=== PATIENT | female | born 1995 | race Caucasian/White ===

== ENCOUNTER 2023-06-30 12:06 | Outpatient (REF) | payer MEDICAID, SELFPAY ==
[2023-06-30 13:18] LABS: MANUAL DIFF FLAG NO
[2023-06-30 13:27] LABS: Basophils Absolute Auto 0.1 X10*3/uL (0.0-0.2); Eosinophils Absolute Auto 0.4 X10*3/uL (0.0-0.4); Eosinophils Percent Auto 4.3 % (0-4); Hemoglobin 12.7 g/dl (12.0-16.0); Imm Gran Abs Auto 0.08 X10*3/uL (0.00-0.03); Imm Gran Pct Auto 0.9 % (0.0-0.4); Lymphocytes Absolute Auto 2.3 X10*3/uL (1.2-4.9); Lymphocytes Percent Auto 24.7 % (20-40); Mean Corpuscular HGB Conc 31.8 g/dl (31.0-35.0); Mean Corpuscular Hemoglobin 25.4 pg (27.0-33.0); Mean Platelet Volume 10.6 fL (9.4-12.3); Monocytes Absolute Auto 0.5 X10*3/uL (0.1-1.2); Monocytes Percent Auto 5.4 % (2-11); Neutrophils Absolute Auto 5.9 x10*3/uL (2.0-8.3); Neutrophils Percent Auto 63.7 % (45-73); Platelet Count 362 X10*3/uL (160-400); Red Cell Distribution Width 13.8 % (11.0-16.0); White Blood Count 9.2 X10*3/uL (4.8-10.8)
[2023-06-30 14:23] LABS: Erythrocyte Sedimentation Rate 44 MM/HR (0-20)
[2023-06-30 16:11] LABS: Alanine Aminotransferase 25 U/L (0-31); Albumin Level 4.2 g/dL (3.5-5.0); Alkaline Phosphatase 93 U/L (39-117); Anion Gap 11 (12-20); Aspartate Amino Transferase 21 U/L (5-31); Bilirubin Total 0.2 mg/dL (0.0-1.0); Blood Urea Nitrogen 9 mg/dL (9-16); C Reactive Protein 2.21 mg/dL (< or = 0.50); Calcium 9.8 mg/dL (8.4-10.2); Carbon Dioxide 27 mmol/L (22-29); Chloride 105 mmol/L (96-108); Estimated Glomerular Filt Rate > 60; Glucose Random 110 mg/dL (60-115); Potassium 3.8 mmol/L (3.3-5.1); Sodium 139 mmol/L (135-145); Total Protein 8.7 g/dL (6.5-8.0)
== END 2023-06-30 12:07 | disposition home or self-care (01) ==
LOC: HO.HHCL 12:06
PROVIDERS: Visit Provider Nurse Practitioner Family
DX: R10.10 Upper abdominal pain, unspecified (principal)
CPT/HCPCS: 36415; 80053; 85025; 85652; 86140

== ENCOUNTER 2023-08-02 11:58 | Outpatient (REF) | payer MEDICAID, SELFPAY ==
[2023-08-02 14:17] LABS: C Reactive Protein 2.23 mg/dL (< or = 0.50)
[2023-08-02 14:28] LABS: Erythrocyte Sedimentation Rate 40 MM/HR (0-20)
== END 2023-08-02 11:59 | disposition home or self-care (01) ==
LOC: HO.HHCL 11:58
PROVIDERS: Visit Provider Nurse Practitioner Family
DX: R79.82 Elevated C-reactive protein (CRP) (principal)
CPT/HCPCS: 36415; 85652; 86140

== ENCOUNTER 2024-03-30 16:11 | Outpatient (REF) | payer MEDICAID, SELFPAY ==
[2024-03-30 18:16] LABS: C Reactive Protein 2.75 mg/dL (< or = 0.50); Magnesium 1.9 mg/dL (1.6-2.6)
[2024-03-30 18:35] LABS: Erythrocyte Sedimentation Rate 53 MM/HR (0-20)
[2024-03-30 18:50] LABS: Folate 7.9 ng/mL (> or = 4.0); Vitamin B12 392 pg/mL (200-900)
== END 2024-03-30 16:12 | disposition home or self-care (01) ==
LOC: HO.HHCL 16:11
PROVIDERS: Visit Provider Nurse Practitioner
DX: M25.50 Pain in unspecified joint (principal)
CPT/HCPCS: 36415; 82607; 82746; 83735; 85652; 86140

== ENCOUNTER 2024-12-13 08:32 | Outpatient (REF) | payer OTHER, SELFPAY ==
--- OUTSIDE RECORDS SUMMARY | 2024-12-13 08:51 | XMS_ITS | Encounter Summary ---
Author Organization [employer] Address [address] [place] [address] Care Team Providers Care Linux Security Administrator Name Role Phone Nimisha Hastings NP Primary Care Provider [phone] Reason for Visit * Reason Onset Date Comments chart prep 12/11/2024 Encounter Details Date Type Department Care Team ([facility] st Contact Info) Description 12/11/[address] [facility] MEDICINE [address] [place] [address] Melo Lamb MA chart prep Social History Tobacco Use Types Packs/Day Years Used Date Smoking Tobacco: Never Smokeless Tobacco: Never Alcohol Use Standard Drinks/Week Comments Not Currently 1 (1 standard drink = 0.6 oz pur e alcohol) Alcohol Answer Date Recorded Frequency of Alcohol Consumption Not on file 02/09/2024 Average Number of Drinks Not on file 024 Frequency of Binge Drinking Not on file 01/16 Score 0 02/09/2024 Depression Answer Date Recorded Patient Health Questionnaire-9 Score 5 05/03/2024 Patient Health Questionnaire-9 Score 5 05/03/2024 Last PHQ-9: Questionnaire Data Not on file 1 07/04/2023 Housing Stability Answer Date Recorded What is your housing situation today? I have lorenzo farah 12/12/[address] you li ve. Do you have problems with any of the following? None of the above 12/12/2024 Food Insecurity Answer Date Recorded Within the past 12 months, y ou worried that your food would run out before you got money to buy more: Never True 12/12/2024 Within the past 12 months,th e food you bought just didn't last and you didn't have enough money to get more: Never True Transportation Answer Date Recorded In the past 12 months, has l ack of transportation kept you from medical appts, meetings, work or from getting things needed for daily living? Yes, it has kept me from medical appointments or getting medications. 12/12/2024 Utilities Answer Date Recorded In the past 12 months, has t he electric, gas, oil or water company threatened to shut off services in your home? Yes 12/12/2024 Depression Answer Date Recorded Patient Health Questionnaire-2 Score 1 05/03/2024 Internet Access Answer Date Recorded Internet Access Q1 Yes 04/04/2024 Internet Access Q2 Not on file 04/04/2024 Comments No Sex and Gender Information Value Date Recorded Sex Assigned at Female 03/13/2022 4:12 PM EDT Legal Sex Female 4:12 PM EDT Gender Identity Non-Binary 11/13/2022 2:53 PM EDT Sexual Orientation Bisexual 11/13/2022 2: 53 PM EDT documented as of this encounter Miscellaneous Notes * Telephone Encounter - Melo Lamb MA - 12/11/2024 11:33 AM EDT Chart Prep Labs: not done-labs printed out Images: not done Referrals: Vaccines due: Covid, Flu, Tdap, Hep B, Hep A, Td, HPV, and DTAP Screenings: pap smear Overdue care gaps: SDOH and Disability screen documented in this encounter Plan of Treatment Upcoming Encounters Date Type Department Care Team (Late st Contact Info) Description 01/12/2025 11:30 AM EDT Office Visit [facility] MEDICINE [address] [place] [address] Nimisha Hastings NP [address] [place] [address] documented as of this encounter Visit Diagnoses Not on filedocumented in this encounter Additional Health Concerns Assessment Noted Time PHQ-9 Depression Total Score: 5 05/03/20 24 11:10 AM EST documented as of this encounter Care Teams Linux Security Administrator Relationship Specialty Start Date End Date Nimisha Hastings NP [address] [place] [address] PCP - General Family Medicine 10/05/23 documented as of this encounter
[2024-12-13 11:23] LABS: MANUAL DIFF FLAG NO
[2024-12-13 11:37] LABS: Hematocrit 40.9 % (37.0-47.0); Hemoglobin 12.7 g/dl (12.0-16.0); Imm Gran Abs Auto 0.10 X10*3/uL (0.00-0.03); Imm Gran Pct Auto 0.8 % (0.0-0.4); Lymphocytes Absolute Auto 3.4 X10*3/uL (1.2-4.9); Mean Corpuscular HGB Conc 31.1 g/dl (31.0-35.0); Mean Corpuscular Hemoglobin 25.0 pg (27.0-33.0); Mean Corpuscular Volume 80.7 fL (80.0-98.0); NRBC Abs Auto 0.000 X10*3/uL (0.0-0.012); NRBC Pct Auto 0.0 /100WBC (0.0-0.2); Platelet Count 380 X10*3/uL (160-400); Red Blood Count 5.07 X10*6/uL (4.20-5.50); White Blood Count 12.0 X10*3/uL (4.8-10.8)
[2024-12-13 12:21] LABS: HIV Num 1 0.07 S/CO (0.00-0.99); ~HepC Num1 0.19 S/CO (0.00-0.79); ~Hepatitis C Antibody Nonreactive (Nonreactive)
[2024-12-13 12:25] LABS: Alanine Aminotransferase 33 U/L (0-31); Albumin Level 4.5 g/dL (3.5-5.0); Alkaline Phosphatase 86 U/L (39-117); Anion Gap 12 (12-20); Aspartate Amino Transferase 25 U/L (5-31); Blood Urea Nitrogen 10 mg/dL (9-16); Calcium 9.6 mg/dL (8.4-10.2); Carbon Dioxide 27 mmol/L (22-29); Chloride 104 mmol/L (96-108); Estimated Glomerular Filt Rate > 60; Potassium 4.0 mmol/L (3.3-5.1); Sodium 139 mmol/L (135-145); Total Protein 8.5 g/dL (6.5-8.0)
[2024-12-13 12:58] LABS: Hemoglobin A1C 122.0876 umol/L; Total Hemoglobin (HGBA1C) 3371.0672 umol/L
[2024-12-13 13:58] LABS: Free T4 (Free Thyroxine) 1.02 ng/dL (0.71-1.85)
== END 2024-12-13 08:33 | disposition home or self-care (01) ==
LOC: HO.HHCL 08:32
PROVIDERS: PCP Nurse Practitioner Family; Visit Provider Nurse Practitioner Family
DX: Z00.00 Encounter for general adult medical examination without abnormal findings (principal); Z11.59 Encounter for screening for other viral diseases; Z11.4 Encounter for screening for human immunodeficiency virus [HIV]; R42 Dizziness and giddiness; R68.89 Other general symptoms and signs
CPT/HCPCS: 36415; 80053; 82533; 83036; 84439; 84443; 85025; 86803; 87389

== ENCOUNTER 2025-01-16 13:24 | Outpatient (AMB) | payer OTHER, SELFPAY ==
--- OUTSIDE RECORDS SUMMARY | 2025-01-12 11:30 | XMS_ITS | Encounter Summary ---
Author Organization [employer] Address [address] [facility] 7t [place] [address] Care Team Providers Care Library Cataloging Technician Name Role Phone Nimisha Hastings NP Primary Care Provider Reason for Referral * Consultation (Routine) - Closed Specialty Diagnoses / Procedures Referred By Contac t Referred To Contact Physical Therapy Diagnoses Migraine with aura and without status migrainosus, not intractable Nimisha Hastings NP [address] [place] [address] Phone: tel: fax: AT Physical Therapy - [address] [address] Phone: tel: fax: Referral ID Status Reason Start Date Expiration Date V isits Requested Visits Authorized [id number] Closed Specialty Services Required 01/12/2025 01/12/2026 1 1 Encounter Details Date Type Department Care Team (Late st Contact Info) Description 01/12/2025 11:30 AM EDT Office Visit [facility] MEDICINE [address] [place], [place] [phone] Nimisha Hastings NP [address] [place], [place] [phone] Migraine with aura and without status migrainosus, not intractable (Primary Dx); Vertigo; Tachycardia Social History Tobacco Use Types Packs/Day Years Used Date Smoking Tobacco: Never Passive Smoke Exposure: Never Smokeless Tobacco: Never Tobacco Cessation:Counseling Given: Not Answered Alcohol Use Standard Drinks/Week Comments Not Currently [...] PM EDT documented as of this encounter Last Filed Vital Signs Vital Sign Reading Time Taken Comments Blood Pressure 114/88 01/12/2025 11:52 AM EDT Pulse 112 01/12/2025 11:44 AM EDT Temperature 36.6 C (97.9 F) 01/12/2025 11:44 AM EDT Respiratory Rate 18 01/12/2025 11:44 AM EDT Oxygen Saturation 95% 01/12/2025 11:44 AM EDT Inhaled Oxygen Concentration - - Weight 98.1 kg (216 lb 6 oz) 01/12/2025 11:44 AM EDT Height 162.6 cm (5' 4 ) 01/12/2025 11:44 AM EDT Body Mass Index 37.14 01/12/2025 11:44 AM EDT documented in this encounter Progress Notes * Nimisha Hastings, DIRECTOR DIETETICS DEPARTMENT - 01/12/2025 11:30 AM EDT Subjective Paris Lux is a 29 y.o. adult who presents to the office for follow up visit - chronic conditions. Interim history: Pt has had to work less, keeping headache journal, Labs from previous visit reviewed with pt Current concerns: Was sitting still and noticed things spinning. Things were getting blurry, and then resulted from headache. Episode lasted 45 minutes was gettign daily headaches but these have reduced significantly.Unable to work Will go to work. Enjoys work does not cause stress. No lightheadedness, now, no palpitations Does not benefit from amitryptiline Reports excessive fatigue Drinks plenty of water, Problem List[1] Review of Systems Constitutional: Negative for activity change and appetite change. Respiratory: Negative for apnea and chest tightness. Objective Visit Vitals BP 114/88 (BP Location: Right arm, Patient Position: Sitting, BP Cuff Size: Large adult) Pulse (!) 112 Temp 97.9 ??F (36.6 ??C) (Oral) Resp 18 Ht 5' 4 (1.626 m) Wt 216 lb 6 oz (98.1 kg) LMP 12/28/2024 (Approximate) SpO2 95% BMI 37.14 kg/m?? OB Status Having periods Smoking Status Never BSA 2.1 m?? Physical Exam Constitutional: Appearance: Claudy is obese. HENT: Head: Atraumatic. Eyes: Conjunctiva/sclera: Conjunctivae normal. Cardiovascular: Rate and Rhythm: Normal rate and regular rhythm. Pulmonary: Effort: Pulmonary effort is normal. Breath sounds: Normal breath sounds. Musculoskeletal: Cervical back: Neck supple. Neurological: Mental Status: Claudy is alert. Assessment/Plan Problem List Items Addressed This Visit Tachycardia Current Assessment & Plan Pt with upcoming visit to cardiology. Possible POTS . Pt reports adequate hydration and salt intake Vertigo Current Assessment & Plan Possibly atypical migraine variant, some improvement with amitryptiline Referral placed to physical therapy, Migraine with aura - Primary Current Assessment & Plan Pt has been keeping headache journal and improvement in symptoms since starting amitryptiling, vertigo symptoms may be atypical aura, Increase to 25 mg, continue with journal. 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 Pharyngitis Recurrent acute non-suppurative otitis media Tachycardia Mild intermittent asthma Generalized abdominal pain Psoriasis (a type of skin inflammation) Tinea corporis Psoriasis Hirsutism Healthcare maintenance Diarrhea Psoriasis of vulva Exercise counseling Dietary counseling Acute low back pain with bilateral sciatica Seasonal allergic rhinitis due to pollen Episodic lightheadedness Temperature intolerance Vertigo Migraine with aura [2] Current Outpatient Medications Medication Sig Dispense Refill albuterol 108 (90 Base) MCG/ACT inhaler INHALE 2 PUFFS BY MOUTH EVERY 6 HOURS NEEDED FOR WHEEZING 36 g 2 amitriptyline (Elavil) 25 MG tablet Take 1 tablet (25 mg) by mouth at bedtime. 30 tablet 2 betamethasone, augmented, (Diprolene) 0.05 % ointment APPLY TOPICALLY TWICE A DAY 30 g 2 loratadine (Claritin) 10 MG tablet Take 1 tablet (10 mg) by mouth Once per day. 30 tablet 2 SUMAtriptan (Imitrex) 100 MG tablet TAKE 1 TABLET BY MOUTH 1 TIME NEEDED FOR MIGRAINE FOR UP TO 1 DOSE 9 tablet 0 triamcinolone (Kenalog) 0.1 % cream Apply topically if needed in the morning and at bedtime for rash (psoriasis). 30 g 2 No current facility-administered medications for this visit. documented in this encounter Miscellaneous Notes * Assessment & Plan Note - Nimisha Hastings NP - 01/12/2025 12:20 PM EDTAssociated Problem(s): Migraine with aura Pt has been keeping headache journal and improvement in symptoms since starting amitryptiling, vertigo symptoms may be atypical aura, Increase to 25 mg, continue with journal. * Assessment & Plan Note - Nimisha Hastings NP - 01/12/2025 12:18 PM EDTAssociated Problem(s): Vertigo Possibly atypical migraine variant, some improvement with amitryptiline Referral placed to physical therapy, * Assessment & Plan Note - Nimisha Hastings NP - 01/12/2025 12:16 PM EDTAssociated Problem(s): Tachycardia Pt with upcoming visit to cardiology. Possible POTS . Pt reports adequate hydration and salt intake documented in this encounter Plan of Treatment Scheduled Referrals Name Type Priority Associated Diagnoses Orde r Schedule Referral to Physical Therapy Outpatient Referral Routine Migraine with aura and without status migrainosus, not intractable Expected: 01/12/2025 (Approximate), Expires: 01/12/2026 documented as of this encounter Visit Diagnoses Diagnosis Migraine with aura and without status migrainosus, not intractable- Primary Vertigo Dizziness and giddiness Tachycardia Unspecified tachycardia documented in this encounter Additional Health Concerns Assessment Noted Time PHQ-9 Depression Total Score: 5 05/03/20 24 11:10 AM EST documented as of this encounter Care Teams Library Cataloging Technician Relationship Specialty Start Date End Date Nimisha Hastings NP [address] [place] [address] PCP - General Family Medicine 10/05/23 documented as of this encounter
--- NOTE | 2025-01-16 13:28 | A.OFFVIS_ITS ---
Vital Signs 01/16/25 13:31 01/16/25 13:55 01/16/25 13:56 Height 5 ft 4 in Weight 207 lb 3.752 oz BMI 35.6 BP 118/83 121/84 124/92 H Blood Pressure Location Lt brachial Lt brachial Lt brachial Position Supine Sitting Standing Pulse 109 H 104 H 111 H Intake Visit Reasons: UTILIZATION REVIEW COORDINATOR/E. Graef/Tachycardia, lightheadedness Intake Note: New Patient Tachycardia and lightheadness effected by hot and cold has felt almost syncopy Plastic Roller Required: No Allergies amoxicillin (From Augmentin) Allergy (Severe, Verified 01/16/25 13:42) Anaphylaxis clavulanic acid (From Augmentin) Allergy (Severe, Verified 01/16/25 13:42) Anaphylaxis Medication List - Last Reconciled 01/16/25 by Power Reyes MD albuterol-budesonide 90-80 mcg/actuation 2 inhalations inhalation DAILY PRN amitriptyline 10 mg PO BEDTIME loratadine (Allergy Relief (loratadine)) 10 mg PO DAILY sumatriptan succinate take 1 tab at onset of headache; if no relief, may repeat 1 tab after at least 2 hrs; max = 2 tabs/24 hrs PO HPI Comments Details: Claudy was referred here for symptoms of persistent rapid heart rate, tachycardia with palpitations and lightheadedness. They are 29-year-old patient with prior history of allergies as well as asthma and migraine headaches. Over the last month symptoms of migraine have become more intense and are associated with now rapid heart rate. They can feel palpitations with a heart is racing in his almost constantly. Also notices when they get up from sitting positions they would get lightheaded sometimes. Drink about 48 oz of water. Try to avoid salt intake. Denies any use of stimulants such as significant alcohol or hmgq-fxs-hlenmwa stimulant use. Has been cutting down caffeine intake. Denies any medications for ADHD. Says that feels anxious but does not want to take medications. Denies any family history. No recent changes in his health otherwise. No recent hormonal changes. Says her thyroid function was checked and this was within normal limits [facility] Surgical History Breast removal, prophylactic Family History Father No problems noted. Mother No problems noted. Review of Systems Const Denies chills, Denies daytime sleepiness, Denies fatigue, Denies fever(s), Denies frequent falls, Denies poor appetite, Denies snoring, Denies stops breathing during sleep, Denies weakness, Denies weight gain and Denies weight loss Eyes Denies loss of vision ENT Reports dizziness and Reports hearing loss Card Reports chest pain, Reports claudication, Denies leg edema, Reports lightheadedness, Reports palpitations, Reports dyspnea, Reports dyspnea on exertion and Reports orthopnea Resp Denies cough, Denies excessive phlegm production, Reports dyspnea, Reports dyspnea on exertion, Denies snoring and Denies wheezing GI Denies abdominal pain, Denies hematochezia, Denies change in bowel habits, Denies nausea and Denies vomiting Denies urinary frequency and Denies dysuria Musc Reports arthralgias, Denies muscle weakness and Denies numbness Skin/Breast Denies nail changes and Denies rash Neuro Denies Abnormal speech present, Reports dizziness, Denies frequent falls, Denies loss of vision, Denies memory loss, Denies numbness and Denies weakness Psych Reports depression and Denies memory loss Endo Denies fatigue and Reports palpitations Keith/Lymph Reports easy bruising and Reports other (anemia) Aller/Immun Denies wheezing Physical Exam Vital Signs: Last Vital Signs Pulse 111 H 01/16/25 13:56 BP 124/92 H 01/16/25 13:56 BMI result Body Mass Index 35.6 Const General: cooperative, comfortable, no acute distress, alert, awake and anxious Nutritional Appearance: obese Orientation/consciousness: patient oriented x3 Limitations: no limitations HEENT Head: Yes normocephalic and Yes atraumatic Neck Neck: Yes trachea midline, Yes supple and Yes no JVD Resp Effort & Inspection: normal respiratory effort Auscultation: clear to auscultation bilaterally Cardio Jugular venous distension: no JVD Rate: tachycardic Rhythm: regular rhythm Heart sounds: S1 normal heart sound present, S2 normal heart sound present, no click, no gallops, no murmurs and no rubs GI Auscultation: normal bowel sounds Skin General skin exam: no rashes or lesions noted Neuro General: patient oriented x3 and no focal motor deficits Speech: No Abnormal speech present Extrem General: Yes no clubbing, cyanosis or edema Office Procedures EKG Details: EKGs shows sinus tachycardia otherwise normal EKGs 25062-[id number], Complete Assessment & Plan Assessment & Plan (1) Tachycardia: Code(s): R00.0 - Tachycardia, unspecified Category: Medical Plan: Patient with persistent tachycardia, sinus tachycardia on today's exam without any clear orthostatic response or orthostatic low blood pressure issues. 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 Need to evaluate for any hormonal imbalance. Will request plasma metanephrine levels. If negative would consider pursuing therapy with nonselective beta-narendra therapy with propranolol which should help with both tachycardia as well as their migraine headaches. Discussed about possible treatment for anxiety/stress which might also help with her tachycardia situation. Advise echocardiogram to evaluate for cardiac structure and function. Also suggest a head-up tilt-table test to assess for dysautonomia syndrome. Advised to maintain adequate hydration up to at least 64 oz a day and also increase salt intake. Will follow up in the clinic in 3 months time, sooner PRN. Orders: Orders ECG Tilt Table Test Today R42 - Dizziness and giddiness ECG 3 day holter monitor Today R00.0 - Tachycardia, unspecified Metanephrines, Plasma Today R00.0 - Tachycardia, unspecified CA echo transthoracic complete Today R00.0 - Tachycardia, unspecified Coding Level of Care Code New Pt Level 4 (64026) Complex EM visit Add On G2211 Diagnoses Tachycardia R00.0 CPT Codes EKG - CPT: 98699-[id number], Complete ([id number])
[2025-01-16 13:31] VITALS: BP 118/83; PULSE 109; BMI 35.6
[2025-01-16 13:55] VITALS: BP 121/84; PULSE 104
[2025-01-16 13:56] VITALS: BP 124/92; PULSE 111
--- OUTSIDE RECORDS SUMMARY | 2025-01-16 14:41 | XMS_ITS | Encounter Summary ---
Author Organization [employer] Address [address] [place] [address] Care Team Providers Care Animal Pathology Teacher Name Role Phone Nimisha Hastings NP Primary Care Provider [phone] Reason for Visit * Reason Onset Date Comments Med Refill 01/12/2025 Pt requesting me d Elavil to be sent to [facility] on [address] Encounter Details Date Type Department Care Team ([facility] st Contact Info) Description 01/12/2025 Refill [facility] MEDICINE [address] [place], [place] [phone] Nimisha Hastings NP [address] [place] [address] Social History Tobacco Use Types Packs/Day Years Used Date Smoking Tobacco: Never Passive Smoke Exposure: Never Smokeless Tobacco: Never Alcohol Use Standard [...] encounter Miscellaneous Notes * Telephone Encounter - Gudelia Camarillo - 01/12/2025 12:22 PM EDT Pt requesting med Elavil to be sent to [facility] on [facility] [address] documented in this encounter Plan of Treatment Not on file documented as of this encounter Visit Diagnoses Not on filedocumented in this encounter Additional Health Concerns Assessment Noted Time PHQ-9 Depression Total Score: 5 05/03/20 24 11:10 AM EST documented as of this encounter Care Teams Animal Pathology Teacher Relationship Specialty Start Date End Date Nimisha Hastings NP [address] [place] [id number] PCP - General Family Medicine 10/05/23 documented as of this encounter
--- OUTSIDE RECORDS SUMMARY | 2025-01-16 14:41 | XMS_ITS | Encounter Summary ---
Author Organization [employer] Address [address] [place] [address] Care Team Providers Care Hand Button Splitter Name Role Phone Nimisha Hastings NP Primary Care Provider [phone] Reason for Visit * Reason Onset Date Comments CHARTPREP 01/11/2025 Encounter Details Date Type Department Care Team (Late st Contact Info) Description 01/11/2025 Telephone [facility] MEDICINE [address] [place] [address] Ty Hernandez MA CHARTPREP Social History Tobacco Use Types Packs/Day Years [...] encounter Miscellaneous Notes * Telephone Encounter - Ty Hernandez MA - 01/11/2025 3:12 PM EDT Chart Prep Labs: done Images: not done Referrals: No appt scheduled Vaccines due: Covid, Flu, PCV20, Tdap, Hep B, Hep A, and HPV Screenings: pap smear Overdue care gaps: Not applicable documented in this encounter Plan of Treatment Not on file documented as of this encounter Visit Diagnoses Not on filedocumented in this encounter Additional Health Concerns Assessment Noted Time PHQ-9 Depression Total Score: 5 05/03/20 24 11:10 AM EST documented as of this encounter Care Teams Hand Button Splitter Relationship Specialty Start Date End Date Nimisha Hastings NP [address] [place] [address] PCP - General Family Medicine 10/05/23 documented as of this encounter
--- OUTSIDE RECORDS SUMMARY | 2025-01-16 14:41 | XMS_ITS | Clinical Summary ---
Author Organization [employer] Address [address] [facility] [address] [place] [address] Care Team Providers Care Account Receivable Associate Name Role Phone Nimisha Hastings NP Primary Care Provider [phone] Allergies Active Allergy Reactions Criticality Noted Date Comments Amoxicillin 01/23/2020 Amoxicillin-Pot Clavulanate Anaphylaxis High 014 Clavulanic Acid 01/23/2020 Kiwi Extract Shortness of breath High 12/05/2020 Medications triamcinolone (Kenalog) 0.1 % creamIndicatio ns:Psoriasis (a type of skin inflammation) Apply topically if needed in the morning and at bedtime for rash (psoriasis). 30 g 2 10/18/19 24 Active betamethasone, augmented, (Diprolene) 0.05 % ointmentIndica tions:Psoriasi s of vulva APPLY TOPICALLY TWICE A DAY 30 g 2 05/16/20 24 Active loratadine (Claritin) 10 MG tabletIndicati ons:Seasonal allergic rhinitis due to pollen Take 1 tablet (10 mg) by mouth Once per day. 30 tablet 2 12/13/19 25 025 Active albuterol 108 (90 Base) MCG/ACT inhaler INHALE 2 PUFFS BY MOUTH EVERY 6 HOURS NEEDED FOR WHEEZING 36 g 2 01/04/20 25 Active SUMAtriptan (Imitrex) 100 MG tablet TAKE 1 TABLET BY MOUTH 1 TIME NEEDED FOR MIGRAINE FOR UP TO 1 DOSE 9 tablet 01/04/20 25 Active amitriptyline (Elavil) 25 MG tablet Take 1 tablet (25 mg) by mouth at bedtime. 30 tablet 01/13/20 25 025 Active albuterol 108 (90 Base) MCG/ACT inhaler Inhale 2 puffs every 6 (six) hours if needed for wheezing. 18 g 11 06/30/19 24 025 Discontinued(Re order (will not trigger notification to Pharmacy)) SUMAtriptan (Imitrex) 100 MG tablet Take 1 tablet (100 mg) by mouth 1 (one) time if needed for migraine for up to 1 dose. 9 tablet 12/13/19 25 025 Discontinued(Re order (will not trigger notification to Pharmacy)) amitriptyline (Elavil) 10 MG tablet Take 1 tablet (10 mg) by mouth at bedtime. 30 tablet 12/13/19 25 025 Discontinued( erapy completed) amitriptyline (Elavil) 25 MG tablet Take 1 tablet (25 mg) by mouth at bedtime. 30 tablet 2 01/13/20 25 025 Discontinued amitriptyline (Elavil) 25 MG tablet Take 1 tablet (25 mg) by mouth at bedtime. 30 tablet 2 01/13/20 25 025 Discontinued( erapy completed) Active Problems Problem Noted Date Diagnosed Date Seasonal allergic rhinitis due to pollen Assessment & Plan (12/12/2024 3:56 PM EDT): Continue supportive measures Episodic lightheadedness 12/12/2024 Assessment & Plan (12/12/2024 3:59 PM EDT): Sometimes positional lightheadedness.referral to cardiology Temperature intolerance 12/12/2024 Assessment & Plan (12/12/2024 4:00 PM EDT): Suspect raynauds, endocrine labs pending. Vertigo 12/12/2024 Assessment & Plan (01/12/2025 12:18 PM EDT): Possibly atypical migraine variant, some improvement with amitryptiline Referral placed to physical therapy, Migraine with aura 12/12/2024 Assessment & Plan (01/12/2025 12:20 PM EDT): Pt has been keeping headache journal and improvement in symptoms since starting amitryptiling, vertigo symptoms may be atypical aura, Increase to 25 mg, continue with journal. Assessment & Plan (12/12/2024 4:01 PM EDT): Pt declined ketorolac today Will trial amitryptiline as migraines as increasing in frequency Follow up in 4 weeks Acute low back pain with bilateral sciatica 04/17 Assessment & Plan (05/13/2024 12:25 PM EST): Isolated episode of severe sciatica, X-ray ordered as pt endorses chronic pain in area Healthcare maintenance 05/03/2024 Assessment & Plan (05/13/2024 12:24 PM EST): Pt due for pap will schedule Labs ordered Anticipatory guidance reviewed Diarrhea 05/03/2024 Assessment & Plan (05/13/2024 12:22 PM EST): Possible IBS, no blood or abdominal pain, no improvement with avoidance of trigger Referral to gi Psoriasis of vulva 05/03/2024 Assessment & Plan (05/13/2024 12:23 PM EST): Referral to derm Exercise counseling 05/03/2024 Assessment & Plan (05/13/2024 12:23 PM EST): Encouraged daily movement, working up to 30 minutes daily Dietary counseling 05/03/2024 Assessment & Plan (12/12/2024 3:56 PM EDT): Dietary Recommendations: Fruits, vegetables, whole grains, protein foods, and fat-free or low-fat dairy products are healthy choices. Eat different types of protein foods in your diet. This can include seafood, lean meats, poultry, beans, peas, lentils, nuts, seeds, soy products, and eggs. Limit foods and beverages higher in added sugars, saturated fat, and sodium. 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, referred to [facility] for medical options Psoriasis 01/30/2024 Psoriasis (a type of skin inflammation) 10/04/19 24 Assessment & Plan (05/13/2024 12:25 PM EST): Stable but would benefit from dermatology Assessment & Plan (03/04/2024 3:23 PM EDT): Renew current medications (topical steroids), referral to derm Assessment & Plan (10/18/2023 5:58 PM EDT): Treating with presumed dx of psoriasis, Referral to derm, pt will update for reoccurring or worsening symptoms Assessment & Plan (10/04/2023 6:28 PM EDT): Suspect psoriatic type eruption though may have a tinea or yeast component Will treat presumptively with combination cream Referral to derm for ongoing management of scalp and likely psoriasis Follow up in 2 weeks for current rash Tinea corporis 10/04/2023 Generalized abdominal pain 10/03/2023 Acute maxillary sinusitis 09/30/2023 Asthma 09/30/2023 Depression 09/30/2023 Fluid level behind tympanic membrane of right ea r 09/30/2023 Recurrent acute non-suppurative otitis media Tachycardia 09/30/2023 Assessment & Plan (01/12/2025 12:16 PM EDT): Pt with upcoming visit to cardiology. Possible POTS . Pt reports adequate hydration and salt intake Assessment & Plan (12/12/2024 3:56 PM EDT): Rapid heart rate, possible POTS referral to cardiology CRP elevated 08/02/2023 Assessment & Plan (08/02/2023 11:51 AM EDT): Trend, no acute symptoms, but pt does endorse some msk aches and pains, plan to monitor them Fatty liver 08/02/2023 Assessment & Plan (08/02/2023 11:48 AM EDT): Incidental finding, reassuring lfts, monitor Gastroesophageal reflux dise ase with esophagitis without hemorrhage 08/02/2023 Assessment & Plan (08/02/2023 11:50 AM EDT): Reviewed option of referral to GI vs ongoing medication therapy . Pt opts for med management , plan to continue 40 mg x 1 month, then reduce to 20 mg x1 month then stop medicine, Follow up in 2 months, Pain of upper abdomen 06/30/2023 Assessment & Plan (06/30/2023 6:18 PM EST): Multiple differentials: Pt endorses sensitivity to lactose, will avoid for 2-5 days, pt endorses some GERD symptoms, will trial famotidine , indication and side effects reviewed, due to tenderness and episode of severe upper abdominal pain per hx, ultrasound ordered r/out gallbladder pathology, aware of s/s requiring urgent evaluation Referral to GI Other hemorrhoids 06/30/2023 Assessment & Plan (06/30/2023 6:22 PM EST): Outside notes reviewed, hx consistent with hemorrhoids, reassuring painless scant amount on toilet paper, no pain with defecation, supportive measures including sitz baths reviewed , hydration and increasing fiber, referral to GI, pt aware of medication option of hydrocotisone suppositories declines today, Referral to GI, follow up in 1 month sooner prn Mild intermittent asthma without complication Assessment & Plan (06/30/2023 6:19 PM EST): Stable mild intermittent, inhaler sent Gender dysphoria 07/14/2020 Mild intermittent asthma 07/14/2020 Gender dysphoria in adult 12/23/2016 Overview (09/30/2023): Added automatically from request for surgery [id number] Added automatically from request for surgery [id number] Pharyngitis 04/05/2014 Resolved Problems Problem Noted Date Diagnosed Date Resolved Date Migraine without aura and wi thout status migrainosus, not intractable 05/26/2024 05/26/2024 Encounters Date Type Department Care Team Description 01/12/2025 11:30 AM EDT Office Visit [facility] [place] [address] Nimisha Hastings NP Migraine with aura and without status migrainosus, not intractable (Primary Dx); Vertigo; Tachycardia 01/12/2025 Refill [facility] [place] [address] Nimisha Hastings NP Migraine with aura and without status migrainosus, not intractable (Primary Dx) 01/12/2025 Refill [facility] [place] [address] Nimisha Hastings NP 01/12/2025 Travel 01/11/2025 Telephone [facility] [place] [address] Ty Hernandez MA CHARTPREP 01/02/2025 Refill [facility] [place] [address] Nimisha Hastings NP 12/21/[address] [facility] [place] [address] Kelsea Auguste RN 12/18/2024 Results Follow-Up [facility] [place] [address] Rae Gutierrez RN Cortisol Random 12/18/2024 Telephone [facility] [place] [address] Nimisha Hastings NP Nurse Triage 12/12/2024 3:30 PM EDT Office Visit [facility] [place] [address] Nimisha Hastings NP Tachycardia (Primary Dx); Dietary counseling; Exercise counseling; Seasonal allergic rhinitis due to pollen; Episodic lightheadedness; Temperature intolerance; Vertigo; Intractable migraine with aura with status migrainosus 12/12/[address] [facility] [address] [place] [address] Nimisha Hastings NP 12/12/2024 Travel 12/11/2024 Travel 12/11/[address] [facility] [address] [place] [address] Melo Lamb MA chart prep 12/05/[address] [facility] [address] [place] [address] Nimisha Hastings NP from Last 3 Months Social History Tobacco Use Types Packs/Day Years [...] is your housing situation today? I have lorenzokimberly farah 12/12/[address] you [...] Orientation Bisexual 11/13/2022 2: 53 PM EDT Last Filed Vital Signs Vital Sign Reading [...] Mass Index 37.14 01/12/2025 11:44 AM EDT Plan of Treatment Health Maintenance Due Date Last Done Comments HPV Vaccines (1 - 3-dose series) 2008 DTaP/Tdap/Td Vaccines (1 - Tdap) 2012 Hepatitis A Vaccines (1 of 2 - Risk 2-dose series) 2012 Hepatitis B Vaccines (1 of 3 - 19+ 3-dose series) 2012 Pneumococcal Vaccine: Pediatrics (0 to 5 Years) and At-Risk Patients (6 to 49) Years (1 of 2 - PCV) 2012 Pap Smear 2014 Cervical Cancer Screening 08/11/2023 HPV/Cotest 08/11/2023 Dental Oral Exam 10/09/2024 04/10/2024 Dental Prophylaxis 10/09/2024 04/10/2024 COVID-19 Vaccine (4 - 2024-2 6 season) 2025 05/29/2021, 09/12/2020, 08/22/2020 Influenza Vaccine (#1) 2025 Alcohol/Substance Use Screening 02/08/2025 02/09/2024 Family Planning (PISQ) 03/01/2025 03/01/2024 Dental X-Ray: Bitewings 04/11/2025 04/10/2024 Depression Screening 05/03/2025 05/03/2024, 05/03/2024 Disability Screening 12/12/2025 12/12/2024 SDOH Screening 12/12/2025 12/12/2024 Tobacco Screening 01/12/2026 01/12/2025 Dental X-Ray: Full Mouth 04/11/2027 04/10/2024 Zoster Vaccines (1 of 2) 08/11/2043 RSV Patients and Patients Aged 60 years or older (1 - 1-dose 75+ series) 2068 HIV Screening Completed 12/13/2024 Hepatitis C Screening Completed 12/13/2024 HIB Vaccines Aged Out No longer eligi ble based on patient's age to complete this topic IPV Vaccines Aged Out No longer eligi ble based on patient's age to complete this topic Meningococcal B Vaccine Aged Out No l onger eligible based on patient's age to complete this topic Meningococcal Vaccine Aged Out No uyen gwendolyn eligible based on patient's age to complete this topic RSV under 20 months Aged Out No longe r eligible based on patient's age to complete this topic Rotavirus Vaccines Aged Out No longer eligible based on patient's age to complete this topic Procedures Procedure Name Priority Date/Time Associated Diagnosis Comments T4, FREE Routine 12/13/2024 8:42 AM EDT Psoriasis (a type of skin inflammation) CORTISOL RANDOM Routine 12/13/2024 8:42 AM EDT Episodic lightheadedness Temperature intolerance COMPREHENSIVE METABOLIC PANEL Routine 12/13/2024 8:42 AM EDT Healthcare maintenance TSH W/REFLEX TO FT4 Routine 12/13/2024 8 :42 AM EDT Healthcare maintenance HEMOGLOBIN A1C Routine 12/13/2024 8:42 AM EDT Healthcare maintenance CBC WITH AUTO DIFFERENTIAL Routine 12/13/2024 8:42 AM EDT Healthcare maintenance HEPATITIS C AB W/REFL TO HCV RNA, QN, PCR Routine 12/13/2024 8:42 AM EDT Healthcare maintenance HIV 1/2 ANTIGEN/ANTIBODY, FOURTH GENERATION W/RFL Routine 12/13/2024 8:42 AM EDT Healthcare maintenance PROPHYLAXIS - ADULT Routine 04/10/2024 1 :00 PM EST INTRAORAL - COMPLETE SERIES OF RADIOGRAPHIC IMAGES Routine 04/10/2024 1:00 PM EST COMPREHENSIVE ORAL EVALUATION - NEW OR ESTABLISHED PATIENT Routine 04/10/2024 1:00 PM EST from Last 3 Months or Most Recently Relevant to Health Maintenance Results * Cortisol Random (12/13/2024 8:42 AM EDT) Cortisol Random 12.0 ug/dL [facility] Comment:Reference Range*: Be fore 10 am 6.2-19.4 ug/dL After 5 pm 2.3-11.9 ug/dL*Please interpret above results accordingly.This test was performed using the Act[employer] chemiluminescentmethod. Values obtained from different assay methods cannotbe used interchangeably.Patients receiving fludrocortisone, prednisolone orprednisone may show artificially elevated cortisol valuesdue to cross-reactivity. 12/13/2024 8:42 AM EDT 12/13/2024 11:18 AM EDT us Nimisha Hastings NUTRITION MANAGER LAB BLOOD ORDERABLES Final Resul t [facility] [address] [place] [phone] [phone] * (ABNORMAL) TSH W/Reflex to FT4 (12/13/2024 8:42 AM EDT) TSH reflex Free T4 4.03(H) 0.32 - 4.0 uIU/mL [facility] Blood Venous blood specimen / Unknown 12/13/2024 8:42 AM EDT 12/13/2024 11:18 AM EDT us Nimisha Hastings NP LAB BLOOD ORDERABLES Final Resul t [facility] [address] [place] [address] [phone] * (ABNORMAL) CBC auto differential (12/13/2024 8:42 AM EDT) White Blood Count 12.0(H) 4.8 - 10.8 X10*3/uL [facility] Red Blood Count 5.07 4.20 - 5.50 X10*6/uL [facility] Hemoglobin 12.7 12.0 - 16.0 g/dl [facility] Hematocrit 40.9 37.0 - 47.0 % [facility] Mean Corpuscular Volume 80.7 80.0 - 98.0 fL [facility] Mean Corpuscular Hemoglobin 25.0(L) 27.0 - 33.0 pg [facility] Mean Corpuscular HGB Conc 31.1 31.0 - 35.0 g/dl [facility] Red Cell Distribution Width 14.3 11.0 - 16.0 % [facility] Platelet Count 380 160 - 400 X10*3/uL [facility] Mean Platelet Volume 10.7 9.4 - 12.3 fL [facility] Neutrophils Percent Auto 61.5 45 - 73 % [facility] Imm Gran Pct Auto 0.8(H) 0.0 - 0.4 % [facility] Lymphocytes Percent Auto 28.5 20 - 40 % [facility] Monocytes Percent Auto 5.8 2 - 11 % [facility] Eosinophils Percent Auto 2.5 0 - 4 % [facility] Basophils Percent Auto 0.9 0 - 2 % [facility] NRBC Pct Auto 0.0 0.0 - 0.2 /100WBC [facility] Neutrophils Absolute Auto 7.4 2.0 - 8.3 x10*3/uL [facility] Imm Gran Abs Auto 0.10(H) 0.00 - 0.03 X10*3/uL [facility] Lymphocytes Absolute Auto 3.4 1.2 - 4.9 X10*3/uL [facility] Monocytes Absolute Auto 0.7 0.1 - 1.2 X10*3/uL [facility] Eosinophils Absolute Auto 0.3 0.0 - 0.4 X10*3/uL [facility] Basophils Absolute Auto 0.1 0.0 - 0.2 X10*3/uL [facility] NRBC Abs Auto 0.000 0.0 - 0.012 X10*3/uL [facility] Blood Venous blood specimen / Unknown 12/13/2024 8:42 AM EDT 12/13/2024 11:18 AM EDT Nimisha Hastings NP LAB BLOOD ORDERABLES Final Resul t Performing Organization Address [facility] Co de Phone Number [facility] [address] [place] [phone] * Hepatitis C Antibody with Reflex to HCV, RNA, Quantitative, Real-Time PCR (12/13/2024 8:42 AM EDT) Hepatitis C Antibody Nonreactive Nonreactive [facility] Comment:Antibodies to HCV no t detected; does not exclude early acuteHCV infection. Blood Venous blood specimen / Unknown 12/13/2024 8:42 AM EDT 12/13/2024 11:18 AM EDT Nimisha Hastings NP LAB BLOOD ORDERABLES Final Resul t Performing Organization Address [facility] Co de Phone Number [facility] [address] [place] [phone] * HIV-1/2 Antigen and Antibodies, Fourth Generation, with Reflexes (12/13/2024 8:42 AM EDT) HIV AB/AG Nonreactive Nonreactive [facility] Comment:HIV-1 p24 Ag and/or HIV-1/HIV-2 Ab not detected.A test result that is nonreactive does not exclude thepossibility of exposure to or infection with HIV-1 and/orHIV-2. Nonreactive results in this assay for individualswith prior exposure to HIV-1 and/or HIV-2 may be due toantigen and antibody levels that are below the limit ofdetection of this assay.The [employer] HIV Ag/Ab Combo assay result andsupplemental assay results should be interpreted inconjunction with the patient's clinical presentation,history and other laboratory results. If the results areinconsistent with clinical evidence, additional testing issuggested to confirm the result. Blood Venous blood specimen / Unknown 12/13/2024 8:42 AM EDT 12/13/2024 11:18 AM EDT us Nimisha Hastings NP LAB BLOOD ORDERABLES Final Resul t Performing Organization Address [facility] Co de Phone Number [facility] [address] [place] [phone] * T4, Free (12/13/2024 8:42 AM EDT) Free T4 (Free Thyroxine) 1.02 0.71 - 1.85 ng/dL [facility] 12/13/2024 8:42 AM EDT 12/13/2024 11:18 AM EDT Nimisha Hastings NP LAB BLOOD ORDERABLES Final Resul t Performing Organization Address [facility] Co de Phone Number [facility] [address] [place] [phone] * Hemoglobin A1c (12/13/2024 8:42 AM EDT) Hemoglobin A1c 5.5 <6.0 % [facility] Comment:Hemoglobin A1C Refer ence Range Adults: 4.8 - 6.0 % Non diabetic: < 6.0 % Goal: < 7.0 %Additional Action Suggested: > 8.0 %Note: Hemoglobin A1c results are invalid for patients with abnormal amounts of HbF. Blood transfusions may impact the HbA1c concentration in the patient sample. Estimated Average Glucose 111 mg/dL [facility] Comment:eAG = Estimated ave rage glucose which is %A1C expressed asaverage glucose, using the formula of the S5Q-IsnyozeCxxpyxy Glucose study (ADAG), Diabetes Care, Vol.31,#8,Dec. 2007 Blood Venous blood specimen / Unknown 12/13/2024 8:42 AM EDT 12/13/2024 11:18 AM EDT us Nimisha Hastings NUTRITION MANAGER LAB BLOOD ORDERABLES Final Resul t [facility] [address] [place] [phone] * (ABNORMAL) Comprehensive Metabolic Panel (12/13/2024 8:42 AM EDT) Sodium 139 135 - 145 mmol/L [facility] Potassium 4.0 3.3 - 5.1 mmol/L [facility] Chloride 104 96 - 108 mmol/L [facility] Carbon Dioxide 27 22 - 29 mmol/L [facility] Anion Gap 12 12 - 20 [facility] Urea Nitrogen (BUN) 10 9 - 16 mg/dL [facility] Creatinine, Serum 0.79 0.5 - 1.4 mg/dL [facility] Estimated Glomerular Filt Rate >60 [facility] Comment:Chronic Kidney Disea se: Estimated GFR < 60 mL/min/1.38c8Iylheh Kidney Disease: Estimated GFR < 15 mL/min/1.73m2 Glucose 97 60 - 115 mg/dL [facility] Calcium 9.6 8.4 - 10.2 mg/dL [facility] Bilirubin, Total 0.3 0.0 - 1.0 mg/dL [facility] Aspartate Amino Transferase 25 5 - 31 U/L [facility] Alanine Aminotransferase 33(H) 0 - 31 U/L [facility] Total Protein 8.5(H) 6.5 - 8.0 g/dL [facility] Albumin Level 4.5 3.5 - 5.0 g/dL [facility] Alkaline Phosphatase 86 39 - 117 U/L [facility] Blood Venous blood specimen / Unknown 12/13/2024 8:42 AM EDT 12/13/2024 11:18 AM EDT us Nimisha Hastings NP LAB BLOOD ORDERABLES Final Resul t [facility] [address] [place] [phone] [phone] from Last 3 Months Insurance [employer] [place] Y[place] [id number] [facility] STAND ADULT Care Teams Account Receivable Associate Relationship Specialty Start Date End Date Nimisha Hastings NP [address] [place] [phone] PCP - General Family Medicine 10/05/23
--- OUTSIDE RECORDS SUMMARY | 2025-01-16 14:41 | XMS_ITS | Encounter Summary ---
Author Organization [employer] Address [address] [facility] [address] [place] [address] Care Team Providers Care Reading Aide Name Role Phone Nimisha Hastings NP Primary Care Provider [phone] Reason for Visit * Reason Onset Date Comments Med Refill 05/05/2024 Encounter Details Date Type Department Care Team (Late st Contact Info) Description 05/05/2024 Refill [facility] [address] [place], [place] [phone] Nimisha Hastings NP [address] [place] [address] Psoriasis of vulva Social History Tobacco Use Types Packs/Day Years [...] housing situation today? I have lorenzo farah 08/02/[address] you li ve. Do you have problems with any of the following? None of the above 08/02/2023 Food Insecurity Answer Date Recorded Within the past 12 months, y ou worried that your food would run out before you got money to buy more: Never True 08/02/2023 Within the past 12 months,th e food you bought just didn't last and you didn't have enough money to get more: Never True Transportation Answer Date Recorded In the past 12 months, has l ack of transportation kept you from medical appts, meetings, work or from getting things needed for daily living? No 08/02/2023 Utilities Answer Date Recorded In the past 12 months, has t he electric, gas, oil or water company threatened to shut off services in your home? No 08/02/2023 Depression Answer Date Recorded Patient Health Questionnaire-2 [...] PM EDT documented as of this encounter Plan of Treatment Not on file documented as of this encounter Visit Diagnoses Diagnosis Psoriasis of vulva documented in this encounter Additional Health Concerns Assessment Noted Time PHQ-9 Depression Total Score: 5 05/03/20 24 11:10 AM EST documented as of this encounter Care Teams Reading Aide Relationship Specialty Start Date End Date Nimisha Hastings NP [address] [place] [address] PCP - General Family Medicine 10/05/23 documented as of this encounter
--- OUTSIDE RECORDS SUMMARY | 2025-01-16 14:41 | XMS_ITS | Encounter Summary ---
Author Organization [employer] Address [address] [facility] [address] [place] [address] Care Team Providers Care Parachute Rigger Name Role Phone Nimisha Hastings NP Primary Care Provider [phone] Reason for Visit * Reason Onset Date Comments Results 03/31/2024 Encounter Details Date Type Department Care Team ([facility] st Contact Info) Description 03/31/2024 Telephone [facility] MEDICINE [address] [place], [place] [phone] Nimisha Hastings NP [address] [place] [address] Results Social History Tobacco Use Types Packs/Day Years Used Date Smoking Tobacco: Never Smokeless Tobacco: Never Alcohol Use Standard Drinks/Week Comments Yes 1 (1 standard drink = 0.6 oz pur e alcohol) Alcohol Answer Date Recorded Frequency of Alcohol Consumption Not on file 02/09/2024 Average Number of Drinks Not on file 024 Frequency of Binge Drinking Not on file 01/16 Score 0 02/09/2024 Depression Answer Date Recorded Patient Health Questionnaire-9 Score 4 10/04/2023 Patient Health Questionnaire-9 Score 4 10/04/2023 Last PHQ-9: Questionnaire Data Not on file 0 10/04/2023 Housing Stability Answer Date Recorded What is [...] Date Recorded Patient Health Questionnaire-2 Score 1 10/04/2023 Internet Access Answer Date Recorded Internet Access [...] encounter Miscellaneous Notes * Telephone Encounter - Reji Mendosa - 03/31/2024 2:48 PM EST .TC from pt requesting call back regarding Results. Type of results: Blood Test Date when done: 03/30 Facility: [facility] Contact pt at [phone] documented in this encounter Plan of Treatment Not on file documented as of this encounter Visit Diagnoses Not on filedocumented in this encounter Additional Health Concerns Assessment Noted Time PHQ-9 Depression Total Score: 4 10/04/19 24 11:24 AM EDT documented as of this encounter Care Teams Parachute Rigger Relationship Specialty Start Date End Date Nimisha Hastings NP [address] [place] [id number] PCP - General Family Medicine 10/05/23 documented as of this encounter
--- OUTSIDE RECORDS SUMMARY | 2025-01-16 14:41 | XMS_ITS | Encounter Summary ---
Author Organization [email or web address] Address [address] [facility] [address] [place] [address] Care Team Providers Care Manager Of Network Name Role Phone Nimisha Hastings NP Primary Care Provider [phone] Reason for Visit * Reason Onset Date Comments Med Refill 01/12/2025 Encounter Details Date Type Department Care Team (Late st Contact Info) Description 01/12/2025 Refill [facility] MED[facility]INE [address] [place], [place] [phone] Nimisha Hastings NP [address] [place] [address] Migraine with aura and without status migrainosus, not intractable (Primary Dx) Social History Tobacco Use Types Packs/Day Years [...] and without status migrainosus, not intractable- Primary documented in this encounter Additional Health Concerns Assessment Noted Time PHQ-9 Depression Total Score: 5 05/03/20 24 11:10 AM EST documented as of this encounter Care Teams Manager Of Network Relationship Specialty Start Date End Date Nimisha Hastings NP [address] [place] [id number] PCP - General Family Medicine 10/05/23 documented as of this encounter
--- OUTSIDE RECORDS SUMMARY | 2025-01-16 14:41 | XMS_ITS | Encounter Summary ---
Author Organization [employer] Address [address] [place] [address] Care Team Providers Care Laminating Machine Feeder Name Role Phone Nimisha Hastings NP Primary Care Provider [phone] Encounter Details Date Type Department Care Team (Latest Contact Info) Description 01/12/2025 Travel Social History Tobacco Use Types Packs/Day Years [...] is your housing situation today? I have lroenzo farah 12/12/[address] you [...] documented as of this encounter Care Teams Laminating Machine Feeder Relationship Specialty Start Date End Date Nimisha Hastings NP [address] [place] [address] PCP - General Family Medicine 10/05/23 documented as of this encounter
== END 2025-01-16 14:19 | disposition home or self-care (01) ==
LOC: HO.HCS 13:25
PROVIDERS: PCP Nurse Practitioner Family; Visit Provider Internal Medicine Cardiovascular Disease
DX: R00.0 Tachycardia, unspecified (principal)
CPT/HCPCS: 93010; 99204; G2211

== ENCOUNTER → 2025-01-16 13:24 | Outpatient (BNVA) | payer OTHER, SELFPAY | PROVIDERS: PCP Nurse Practitioner Family; Visit Provider Internal Medicine Cardiovascular Disease | DX: R42 Dizziness and giddiness (principal); R00.0 Tachycardia, unspecified | CPT/HCPCS: 93005 ==